=== PATIENT | female | born 1955 | race Caucasian/White ===

== ENCOUNTER 2022-05-11 17:30 | Emergency (ER) | payer MEDICARE, OTHER ==
[~2022-05-11] VITALS: Ht 165.1 cm; Wt 81.6 kg
[2022-05-11] MEDS ORDERED: RT-ALBUTEROL/IPRATROPIUM 3 ML (DUONEB) VIAL INH ONE (18:00)
[2022-05-11] MEDS ORDERED: predniSONE 20 MG TAB PO ONE (18:00)
--- NOTE | 2022-05-11 18:17 | ED Cough/URI ---
General Chief Complaint: Cough/Cold/Flu Symptoms Stated Complaint: COUGH/SOA Nursing Triage Note: PT AMB TO RM 9 W C/O COUGH AND RUNNY NOSE X4 DAYS, PT BELIEVES SHE HAS BRONCHITIS. A&OX4. Source: patient Exam Limitations: no limitations (CHAUNCEY JACOBSON APRN) History of Present Illness Date Seen by Provider: May 11, 2022 Time Seen by Provider: 17:55 Initial Comments Patient is a 67-year-old female who presents to the emergency department with cough and runny nose for the last 4 days. Patient has a history of COPD and is a current smoker. States she relatively recently moved from [place] and is supposed take blood pressure meds but has been off of them for quite a while. States she does not normally take any kind of breathing treatment or respiratory medications. States she has had a mildly productive cough. Denies any exposure to ill persons in the recent past. Denies chest pain. (CHAUNCEY JACOBSON APRN) Allergies and Home Medications Allergies Coded Allergies: No Known Drug Allergies (Unverified , 05/11/22) Patient Home Medication List Home Medication List Reviewed: Yes (CHAUNCEY JACOBSON APRN) Albuterol Sulfate (Ventolin Hfa) 1 Puff Puff, 2-4 PUFF INH Q4H PRN for WHEEZING Prescribed by: Chauncey Jacobson on 05/11/221857 Prednisone (Prednisone) 20 Mg Tab, 40 MG PO DAILY Prescribed by: Chauncey Jacobson on 05/11/221857 Review of Systems Review of Systems Constitutional: no symptoms reported EENTM: see HPI, nose congestion Respiratory: see HPI, cough Cardiovascular: no symptoms reported Gastrointestinal: no symptoms reported Genitourinary: no symptoms reported Musculoskeletal: no symptoms reported Skin: no symptoms reported Psychiatric/Neurological: No Symptoms Reported Hematologic/Lymphatic: No Symptoms Reported Immunological/Allergic: no symptoms reported (CHAUNCEY JACOBSON APRN) Past Xgenaxg-Itsrej-Antsjm Hx Patient Social History Tobacco Use?: Yes Tobacco type used: Cigarettes Smoking Status: Current Everyday Smoker Use of E-Cig and/or Vaping dev: No Substance use?: No Alcohol Use?: No (CHAUNCEY JACOBSON APRN) Immunizations Up To Date Influenza Vaccine Up-to-Date: No; Not Current First/Initial COVID19 Vaccinat: 2020 Second COVID19 Vaccination Gerson: 2020 Third COVID19 Vaccination Date: NONE COVID19 Vaccine Tank Inspector: MODERNA X2 (CHAUNCEY JACOBSON APRN) Physical Exam Vital Signs - First Documented 05/11/22 17:50 Temp 37.2 Pulse 81 Resp 20 B/P (MAP) 200/107 (138) Pulse Ox 94 O2 Delivery Room Air (RADHAMES FERRERAA Italo ADAMS) Capillary Refill : Less Than 3 Seconds (CHAUNCEY JACOBSON [employer]) Height: '" Weight: lbs. oz. kg; 29.00 BMI Method: General Appearance: WD/WN, no apparent distress HEENT: PERRL/EOMI, normal ENT inspection, TMs normal, pharynx normal Neck: non-tender, full range of motion, supple Respiratory: chest non-tender, lungs clear, normal breath sounds, no resp iratory distress, no accessory muscle use Cardiovascular: regular rate, rhythm Gastrointestinal: normal bowel sounds, non tender, soft Extremities: normal range of motion, non-tender, normal inspection Neurologic/Psychiatric: no motor/sensory deficits, alert, normal mood/affect, oriented x 3 Skin: normal color, warm/dry (CHAUNCEY JACOBSON APRN) Progress/Results/Core Measures Suspected Sepsis SIRS Temperature: Pulse: 81 Respiratory Rate: 20 Blood Pressure 200 /107 Mean: 138 (CHAUNCEY JACOBSON APRN) Results/Orders Lab Results Laboratory Tests Test 05/11/22 17:55 Range/Units Influenza Type A (RT-PCR) Not Detected Not Detecte Influenza Type B (RT-PCR) Not Detected Not Detecte SARS-CoV-2 RNA (RT-PCR) Not Detected Not Detecte (RADHAMES FERRERAA Italo ADAMS) Medications Given in ED Current Medications Medications Dose Ordered Sig/Tai Route Start Time Stop Time Status Last Admin Dose Admin Albuterol/ Ipratropium 3 ml ONCE ONCE INH 05/11/22 18:00 05/11/22 18:01 DC 05/11/22 18:30 3 ML Prednisone 40 mg ONCE ONCE PO 05/11/22 18:00 05/11/22 18:01 DC 05/11/22 18:30 40 MG (IBANABDIFATAH K DO) Vital Signs/I&O 05/11/22 05/11/22 17:50 19:00 Temp 37.2 36.9 Pulse 81 80 Resp 20 18 B/P (MAP) 200/107 (138) 171/99 Pulse Ox 94 96 O2 Delivery Room Air Room Air (ABDIFATAH FERRERA DO) Vital Signs/I&O Capillary Refill : Less Than 3 Seconds (CHAUNCEY JACOBSON APRN) Blood Pressure Mean: 138 Progress Note : Progress Note Patient is nontoxic and well-hydrated on exam. No adventitious lung sounds or increased work of breathing noted. Vital signs are reassuring without hypoxia. Hypertension is likely patient's baseline given she is not currently taking any antihypertensive medications. Patient had a chest x-ray that was acutely negative. Viral testing was obtained. Patient is negative for COVID and flu by rapid testing. Patient likely has a viral illness is exacerbating her underlying COPD. Patient was given a DuoNeb with subsequent improvement in work of breathing. She was also given a dose of prednisone in the emergency department. She will be discharged home with a prescription for an albuterol inhaler as well as a 4-day course of prednisone. Follow-up with PCP. Return precautions for urgent symptomology discussed. Patient verbalized understanding. (CHAUNCEY JACOBSON APRN) Departure Impression Primary Impression: Viral URI Additional Impression: COPD exacerbation Disposition: 01 HOME, SELF-CARE Condition: Stable Departure-Patient Inst. Decision time for Depature: 18:50 (CHAUNCEY JACOBSON APRN) Referrals: [facility] [place] Primary Care Physician Patient Instructions: COPD Exacerbation, Adult ED Scripts Prednisone (Prednisone) 20 Mg Tab 40 MG PO DAILY for 4 Days, #8 TAB 0 Refills Prov: CHAUNCEY JACOBSON APRN 05/11/22 Albuterol Sulfate (VENTOLIN HFA) 1 Puff Puff 2-4 PUFF INH Q4H PRN for WHEEZING, #1 EA 0 Refills 1 PUFF = 90 MCG Prov: CHAUNCEY JACOBSON APRN 05/11/22 ATTENDING PHYSICIAN NOTE: I WAS PHYSICALLY PRESENT ER PHYSICIAN, BUT I WAS NOT INVOLVED IN ANY DECISION MAKING OR ANY CARE OF THIS PATIENT, AND I AM NOT COLLABORATING PHYSICIAN. (ABDIFATAH FERRERA DO) CHAUNCEY JACOBSON APRN May 11, 2022 18:17 ABDIFATAH FERRERA DO May 12, 2022 01:47
--- NOTE | 2022-05-11 18:45 | Diagnostic Imaging Report ---
Chest 1 view, AP/PA only Indication: Cough and shortness of air. Comparison: None available. Findings: No focal airspace disease in the visualized lungs. No pleural effusion or pneumothorax. Normal cardiomediastinal silhouette. There is likely mediastinal fat resulting in slight contour abnormality of the cardiac apex. Impression: No acute cardiopulmonary process by portable radiography. Dictated by: Dictated on workstation # [id number]
[2022-05-11] MEDS ORDERED: PRD20T PO (18:58)
[2022-05-11] MEDS ORDERED: RT-ALBUINH INH (18:58)
[2022-05-11 19:00] VITALS: BP 171/99
== END 2022-05-11 19:02 | disposition home or self-care (01) ==
LOC: ER 17:32
DX: J06.9 Acute upper respiratory infection, unspecified (principal); J44.1 Chronic obstructive pulmonary disease with (acute) exacerbation; F17.210 Nicotine dependence, cigarettes, uncomplicated; Z20.822 Contact with and (suspected) exposure to COVID-19
CPT/HCPCS: 71045; 87636